=== PATIENT | female | born 1950 | race Hispanic/Latino ===

== ENCOUNTER → 2018-01-08 | Outpatient (CLI) | payer MEDICARE ==
[~2018-01-08] MED LIST: ALPR1TAB2 PO; CARV6.2579 PO; HYDROCODONE PO; LEVO50TA11 PO; OMEG1CAP6 PO; VIT D PO
== END ==
LOC: RAH 09:40
PROVIDERS: ATTEND Internal Medicine
DX: I07.1 Rheumatic tricuspid insufficiency (principal); E78.5 Hyperlipidemia, unspecified; R60.9 Edema, unspecified; K21.9 Gastro-esophageal reflux disease without esophagitis
CPT/HCPCS: 93306

== ENCOUNTER → 2021-06-24 | Outpatient (CLI) | payer MEDICARE | END | disposition home or self-care (01) | LOC: DAH 13:50 | PROVIDERS: ATTEND Internal Medicine | DX: Z01.818 Encounter for other preprocedural examination (principal); M17.12 Unilateral primary osteoarthritis, left knee | CPT/HCPCS: 71045 ==

== ENCOUNTER 2022-08-13 03:02 | Emergency (ER) | payer MEDICARE ==
[~2022-08-13] VITALS: Ht 149.9 cm; Wt 81.2 kg
[2022-08-13] MEDS ORDERED: ROPINIROLE HCL 1 MG TABLET PO SCH (04:30)
[2022-08-13] MEDS ORDERED: PRAM0.25 PO (04:32)
[2022-08-13] MEDS ORDERED: ALPRAZOLAM 0.25 MG TABLET ONE (04:44)
[2022-08-13 04:47] VITALS: BP 119/76
[2022-08-13] MEDS ORDERED: ALPRAZOLAM 0.5 MG TABLET PO ONE (05:00)
== END 2022-08-13 04:59 | disposition home or self-care (01) ==
LOC: EDH 03:02
DX: G25.81 Restless legs syndrome (principal); E78.00 Pure hypercholesterolemia, unspecified; I10 Essential (primary) hypertension; Z79.899 Other long term (current) drug therapy

== ENCOUNTER → 2023-10-22 | Outpatient (CLI) | payer MEDICARE ==
[~2023-10-22] MED LIST changes: +PRAM0.25 PO
== END | disposition home or self-care (01) ==
LOC: RAH 08:45
PROVIDERS: ATTEND Internal Medicine Gastroenterology
DX: K21.9 Gastro-esophageal reflux disease without esophagitis (principal); R13.10 Dysphagia, unspecified
CPT/HCPCS: 74240

== ENCOUNTER → 2023-11-14 | Outpatient (CLI) | payer MEDICARE, OTHER | END | disposition home or self-care (01) | LOC: RAH 12:47 | PROVIDERS: ATTEND Internal Medicine Gastroenterology | DX: R13.10 Dysphagia, unspecified (principal); R63.30 Feeding difficulties, unspecified | CPT/HCPCS: 74230; 92611 ==